=== PATIENT | male | born 1940 | race Caucasian/White ===

== ENCOUNTER 2018-11-23 04:55 | Emergency (ER) | payer MEDICARE, MEDICAID ==
[2018-11-23] MEDS ORDERED: Lidocaine 2% JELLY* 6 ML JELLY TOPICAL ONE ×2 (05:09→05:11)
--- NOTE | 2018-11-23 05:10 | ED ---
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 The patient says his bleeding resolved upon arrival. The patient states he rarely ever gets nosebleeds. He denies being on anticoagulants. He denies being in any pain. - History of Current Complaint Chief Complaint: EDEpistaxis Hx Obtained From: Patient Onset/Duration: Lasting Hours - Allergies/Home Medications Allergies/Adverse Reactions: Allergies Allergy/AdvReac Type Severity Reaction Status Date / Time No Known Allergies Allergy Verified 02/23/13 15:46 PMH/Surg Hx/FS Hx/Imm Hx Cardiovascular History: Reports: Hx Congestive Heart Failure, Hx Hypertension, Hx Myocardial Infarction, Hx Pacemaker/ICD Infectious Disease History: No Infectious Disease History: Denies: Traveled Outside the [place] in Last 30 Days - Family History Known Family History: Positive: Cardiac Disease - Social History Alcohol Use: None Hx Substance Use: No Substance Use Type: Reports: None Hx Tobacco Use: Yes Smoking Status (MU): Former Smoker Review of Systems Negative: Fever Positive: Epistaxis All Other Systems Reviewed And Are Negative: Yes Physical Exam - Summary Physical Exam Summary: VITAL SIGNS: Reviewed. GENERAL: Patient is a well-developed and nourished MALE who is lying comfortable in the stretcher. Patient is not in any acute respiratory distress. HEAD AND FACE: No signs of trauma. No ecchymosis, hematomas or skull depressions. No sinus tenderness. Large clot in the left nare. EYES: PERRLA, EOMI x 2, No injected conjunctiva, no nystagmus. EARS: Hearing grossly intact. Ear canals and tympanic membranes are within normal limits. MOUTH: Oropharynx within normal limits. NECK: Supple, trachea is midline, no adenopathy, no JVD, no carotid bruit, no c- spine tenderness, neck with full ROM CHEST: Symmetric, no tenderness at palpation LUNGS: Clear to auscultation bilaterally. No wheezing or crackles. CVS: Regular rate and rhythm, S1 and S2 present, no murmurs or gallops appreciated. ABDOMEN: Soft, non-tender. No signs of distention. No rebound no guarding, and no masses palpated. Bowel sounds are normal. EXTREMITIES: FROM in all major joints, no edema, no cyanosis or clubbing. NEURO: Alert and oriented x 3. No acute neurological deficits. Speech is normal and follows commands. SKIN: Dry and warm Triage Information Reviewed: Yes Vital Signs On Initial Exam: Initial Vitals Temp Pulse Resp BP Pulse Ox 98.2 F 69 20 172/88 95 11/23/18 04:58 11/23/18 04:58 11/23/18 04:58 11/23/18 04:58 11/23/18 04:58 Vital Signs Reviewed: Yes Diagnostics - Vital Signs Vital Signs Temp Pulse Resp BP Pulse Ox 11/23/18 04:58 98.2 F 69 20 172/88 95 - Laboratory Lab Statement: Any lab studies that have been ordered have been reviewed, and results considered in the medical decision making process. 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 Physical exam revealed a large clot in his left nare. One rhino rocket was placed in the left nare. A plan for discharge was discussed with the patient and he was agreeable with this plan. - Diagnoses Provider Diagnoses: Epistaxis Discharge - Sign-Out/Discharge Documenting (check all that apply): Patient Departure - Discharge Patient Received Moderate/Deep Sedation with Procedure: No - Discharge Plan Condition: Stable Disposition: HOME Prescriptions: Amoxicillin/Clavulanate TAB* [Augmentin TAB 875*] 875 mg PO BID #10 tab Patient Education Materials: Nosebleed (ED) Referrals: [facility] [Provider Group] - 1 Day Additional Instructions: Follow up with ENT today for removal of rhino rocket. Return to ED with any new or worsening symptoms - Billing Disposition and Condition Condition: STABLE Disposition: Home - Attestation Statements Document Initiated by Scribe: Yes Documenting Scribe: Kaushal Don Provider For Whom Bryan is Documenting (Include Credential): Vera Burgess MD Scribe Attestation: Kaushal Willson scribed for Vera Burgess MD on 11/23/18 at 0648. Scribe Documentation Reviewed: Yes Provider Attestation: The documentation as recorded by the Kaushal galicia accurately reflects the service I personally performed and the decisions made by me, Vera Burgess MD Status of Scribe Document: Viewed
[2018-11-23] MEDS ORDERED: traMADol TAB* 50 MG PO ONE (05:13)
[2018-11-23] MEDS ORDERED: cloNIDine TAB* 0.1 MG PO ONE (05:13)
[2018-11-23] MEDS ORDERED: Amoxicillin/Clavulanate TAB* 875 MG PO ONE (06:04)
[2018-11-23 06:50] VITALS: BP 131/63
== END 2018-11-23 06:49 | disposition home or self-care (01) ==
LOC: ED 04:55
DX: R04.0 Epistaxis (principal); I25.2 Old myocardial infarction; Z87.891 Personal history of nicotine dependence; I11.0 Hypertensive heart disease with heart failure
CPT/HCPCS: 30901; 99282; A9270-GY

== ENCOUNTER 2023-01-20 22:36 | Inpatient (IN) ==
[2023-01-21 12:49] LABS: ABS Lymphocytes 0.5 10^3/uL (1.0-4.8); ABS Monocytes 0.8 10^3/uL (0.0-1.1); ABS Neutrophils 8.1 10^3/uL (1.5-7.6); ABS Nucleated RBC 0.02 10^3/ul; Hematocrit 43.2 % (38-53); Hemoglobin 14.4 g/dL (13.2-16.3); Lymphocyte % 5.1 %; Mean Corpuscular Hemoglobin 32.1 pg (27-33); Mean Corpuscular Hgb Conc 33.3 g/dL (31-36); Mean Corpuscular Volume 96.4 fL (80-97); Mean Platelet Volume 9.8 fL (7.5-11.2); Nucleated Red Blood Cells % 0.2 /100 WBC (0.0-0.4); Platelet Count 115 10^3/uL (150-450); Red Blood Count 4.48 10^6/uL (4.06-5.63); Red Cell Distribution Width 16.6 % (12-17); White Blood Count 9.4 10^3/uL (3.6-10.2)
[2023-01-21 13:09] LABS: Albumin 3.2 g/dL (3.2-5.2); Albumin/Globulin Ratio 1.1 (1-3); C Reactive Protein 13.52 mg/L (<8.01); Calcium 8.7 mg/dL (8.6-10.3); Creatinine, Serum 1.97 mg/dL (0.67-1.17); Globulin 2.9 g/dL (2-4); Potassium 4.9 mmol/L (3.5-5.0); Total Bilirubin 3.4 mg/dL (0.2-1.0); Total Protein 6.1 g/dL (6.4-8.9); eGFR CKD-EPI 32.7 (>60)
[2023-01-21] MEDS ORDERED: NS 0.9% 1000 ml BAG 1,000 ML IV ONE (13:30)
[2023-01-21] MEDS ORDERED: cefTRIAXone 1 gm/50 mL D5W 1 GM/50 ML BAG IV ONE (13:30)
[2023-01-21 14:10] LABS: Urine Appearance Cloudy; Urine Bilirubin Negative (Negative); Urine Blood Negative (Negative); Urine Color Amber; Urine Glucose Negative (Negative); Urine Ketones Negative (Negative); Urine Nitrite Negative (Negative); Urine Protein 2+(100 mg/dL) (Negative); Urine Specific Gravity 1.017 (1.002-1.030); Urine Urobilinogen Positive (Negative)
[2023-01-21 15:17] LABS: Urine Bacteria 1+ (Absent); Urine Red Blood Cell 2+(6-10/hpf) (Absent); Urine Squamous Epithelial Cell Present (Absent); Urine White Blood Cell 3+(>20/hpf) (Absent)
[2023-01-21] MEDS ORDERED: Polyethylene Glycol 3350 17 GM PACKET PO PRN ×2 (15:47→16:36)
[2023-01-21] MEDS ORDERED: Magnesium Hydroxide LIQ 30 ML UDC PO PRN (15:47)
[2023-01-21] MEDS ORDERED: Senna TAB 8.6 mg TAB PO PRN ×2 (15:47→16:36)
[2023-01-21] MEDS ORDERED: Ondansetron 4 mg VIAL 2 MG/ML 2 ml VIAL IV PRN (16:36)
[2023-01-21] MEDS ORDERED: Dextrose 50% Syringe 50 ml 25 GM/50 ML SYRINGE IV PUSH PRN (16:39)
[2023-01-21] MEDS: Furosemide 40 mg/4 ml IV VIAL IV SLOW PU SCH (16:52)
[2023-01-21] MEDS ORDERED: Enoxaparin 40 MG/0.4 ML SYR SUBCUT SCH (21:00)
[2023-01-21] MEDS: Heparin 5000 UNITS/ML 1 mL VIAL SUBCUT SCH (21:59)
[2023-01-22] MEDS ORDERED: Furosemide 40 mg/4 ml IV VIAL IV SLOW PU ONE (01:08)
[2023-01-22 06:11] LABS: ABS Lymphocytes 0.4 10^3/uL (1.0-4.8); ABS Monocytes 0.5 10^3/uL (0.0-1.1); ABS Neutrophils 8.1 10^3/uL (1.5-7.6); ABS Nucleated RBC 0.02 10^3/ul; Hematocrit 43.4 % (38-53); Hemoglobin 14.6 g/dL (13.2-16.3); Lymphocyte % 4.8 %; Mean Corpuscular Hemoglobin 32.9 pg (27-33); Mean Corpuscular Hgb Conc 33.7 g/dL (31-36); Mean Corpuscular Volume 97.6 fL (80-97); Nucleated Red Blood Cells % 0.2 /100 WBC (0.0-0.4); Platelet Count 98 10^3/uL (150-450); Red Blood Count 4.45 10^6/uL (4.06-5.63); Red Cell Distribution Width 17.1 % (12-17); White Blood Count 9.1 10^3/uL (3.6-10.2)
[2023-01-22 06:13] LABS: INR 1.63 (0.88-1.18)
[2023-01-22 06:35] LABS: Albumin 3.1 g/dL (3.2-5.2); Calcium 8.5 mg/dL (8.6-10.3); Creatinine, Serum 1.87 mg/dL (0.67-1.17); Globulin 3.1 g/dL (2-4); Magnesium 2.1 mg/dL (1.9-2.7); Potassium 3.9 mmol/L (3.5-5.0); Total Bilirubin 3.1 mg/dL (0.2-1.0); Total Protein 6.2 g/dL (6.4-8.9); eGFR CKD-EPI 34.8 (>60)
[2023-01-22] MEDS: Furosemide 40 mg/4 ml IV VIAL IV SLOW PU SCH ×2 (09:38→19:41)
[2023-01-22] MEDS: Aspirin EC 81 mg TAB.EC (enteric coated) PO SCH (09:38)
[2023-01-22] MEDS: Heparin 5000 UNITS/ML 1 mL VIAL SUBCUT SCH (09:43)
[2023-01-22 14:14] LABS: Folate > 20.00 ng/mL (5.90-24.80)
[2023-01-22 14:16] LABS: Vitamin B12 > 1450 pg/mL (180-914)
[2023-01-22 14:34] LABS: Hepatitis C Antibody Negative (Negative)
[2023-01-22 14:56] LABS: Hepatitis B Surface Antigen Nonreactive (Nonreactive)
[2023-01-22 15:01] LABS: Hepatitis A Ab IgM Negative (Negative); Hepatitis B Core IgM Nonreactive (Nonreactive)
[2023-01-22 16:43] LABS: High Sensitivity Troponin 1 Hr 54 pg/mL (<20)
[2023-01-22] MEDS: Enoxaparin 30 MG/0.3 ML SYR SUBCUT SCH (20:36)
[2023-01-23 06:21] LABS: ABS Lymphocytes 0.7 10^3/uL (1.0-4.8); ABS Monocytes 0.6 10^3/uL (0.0-1.1); ABS Neutrophils 6.5 10^3/uL (1.5-7.6); ABS Nucleated RBC 0.02 10^3/ul; Eosinophil % 0.4 %; Hematocrit 39.7 % (38-53); Hemoglobin 13.3 g/dL (13.2-16.3); Lymphocyte % 8.6 %; Mean Corpuscular Hemoglobin 32.7 pg (27-33); Mean Corpuscular Hgb Conc 33.5 g/dL (31-36); Mean Corpuscular Volume 97.6 fL (80-97); Mean Platelet Volume 10.1 fL (7.5-11.2); Nucleated Red Blood Cells % 0.2 /100 WBC (0.0-0.4); Platelet Count 84 10^3/uL (150-450); Red Blood Count 4.07 10^6/uL (4.06-5.63); Red Cell Distribution Width 16.8 % (12-17); White Blood Count 7.8 10^3/uL (3.6-10.2)
[2023-01-23 06:32] LABS: Albumin 2.7 g/dL (3.2-5.2); Calcium 7.9 mg/dL (8.6-10.3); Creatinine, Serum 2.06 mg/dL (0.67-1.17); Globulin 2.8 g/dL (2-4); Potassium 4.2 mmol/L (3.5-5.0); Total Bilirubin 2.9 mg/dL (0.2-1.0); Total Protein 5.5 g/dL (6.4-8.9)
[2023-01-23 09:07] LABS: Direct Bilirubin 1.7 mg/dL (0.03-0.18); Indirect Bilirubin 1.2 mg/dL (0.3-1.0)
[2023-01-23 10:14] LABS: HDL Cholesterol 30.8 mg/dL
[2023-01-23] MEDS: Aspirin EC 81 mg TAB.EC (enteric coated) PO SCH (10:15)
[2023-01-23 10:45] LABS: TSH Ultra Thyroid Stim Horm 0.84 mcIU/mL (0.34-5.60)
[2023-01-23 10:47] LABS: Free T4 1.12 ng/dL (0.61-1.12)
[2023-01-23 10:48] LABS: Free T3 2.2 pg/mL (2.5-3.9)
[2023-01-23 10:53] LABS: Ferritin 444.3 ng/mL (24-336)
[2023-01-23] MEDS: Furosemide 40 mg/4 ml IV VIAL IV SLOW PU SCH ×2 (11:21→20:12)
[2023-01-23 15:43] LABS: C Reactive Protein 43.49 mg/L (<8.01)
[2023-01-23] MEDS: Enoxaparin 30 MG/0.3 ML SYR SUBCUT SCH (21:36)
[2023-01-24 07:25] LABS: ABS Eosinophils 0.1 10^3/uL (0.0-0.5); ABS Lymphocytes 0.9 10^3/uL (1.0-4.8); ABS Monocytes 0.6 10^3/uL (0.0-1.1); ABS Neutrophils 4.9 10^3/uL (1.5-7.6); ABS Nucleated RBC 0.02 10^3/ul; Eosinophil % 0.9 %; Hematocrit 39.9 % (38-53); Hemoglobin 13.3 g/dL (13.2-16.3); Lymphocyte % 13.6 %; Mean Corpuscular Hemoglobin 32.5 pg (27-33); Mean Corpuscular Hgb Conc 33.4 g/dL (31-36); Mean Corpuscular Volume 97.3 fL (80-97); Mean Platelet Volume 10.6 fL (7.5-11.2); Nucleated Red Blood Cells % 0.3 /100 WBC (0.0-0.4); Platelet Count 81 10^3/uL (150-450); Red Cell Distribution Width 17.1 % (12-17); White Blood Count 6.5 10^3/uL (3.6-10.2)
[2023-01-24 07:39] LABS: Calcium 7.8 mg/dL (8.6-10.3); Creatinine, Serum 1.83 mg/dL (0.67-1.17); Magnesium 2.2 mg/dL (1.9-2.7); Potassium 4.1 mmol/L (3.5-5.0); eGFR CKD-EPI 35.7 (>60)
[2023-01-24] MEDS: Aspirin EC 81 mg TAB.EC (enteric coated) PO SCH (09:24)
[2023-01-24] MEDS: Enoxaparin 30 MG/0.3 ML SYR SUBCUT SCH (20:16)
[2023-01-25 07:12] LABS: ABS Lymphocytes 0.6 10^3/uL (1.0-4.8); ABS Monocytes 0.4 10^3/uL (0.0-1.1); ABS Neutrophils 4.7 10^3/uL (1.5-7.6); Eosinophil % 0.4 %; Hematocrit 40.3 % (38-53); Hemoglobin 13.5 g/dL (13.2-16.3); Lymphocyte % 9.7 %; Mean Corpuscular Hgb Conc 33.6 g/dL (31-36); Mean Corpuscular Volume 98.3 fL (80-97); Mean Platelet Volume 9.7 fL (7.5-11.2); Nucleated Red Blood Cells % 0.1 /100 WBC (0.0-0.4); Platelet Count 57 10^3/uL (150-450); Red Cell Distribution Width 17.4 % (12-17); White Blood Count 5.7 10^3/uL (3.6-10.2)
[2023-01-25 07:23] LABS: Calcium 8.1 mg/dL (8.6-10.3); Creatinine, Serum 1.69 mg/dL (0.67-1.17); Magnesium 2.3 mg/dL (1.9-2.7); Potassium 4.3 mmol/L (3.5-5.0); eGFR CKD-EPI 39.3 (>60)
[2023-01-25] MEDS ORDERED: Furosemide 20 mg/2 ml IV VIAL IV ONE (09:26)
[2023-01-25] MEDS: Aspirin EC 81 mg TAB.EC (enteric coated) PO SCH (09:36)
[2023-01-25] MEDS: Enoxaparin 30 MG/0.3 ML SYR SUBCUT SCH (21:37)
[2023-01-26 07:01] LABS: ABS Lymphocytes 0.6 10^3/uL (1.0-4.8); ABS Monocytes 0.4 10^3/uL (0.0-1.1); ABS Neutrophils 5.7 10^3/uL (1.5-7.6); Eosinophil % 0.1 %; Hematocrit 41.8 % (38-53); Hemoglobin 13.9 g/dL (13.2-16.3); Lymphocyte % 8.6 %; Mean Corpuscular Hemoglobin 32.7 pg (27-33); Mean Corpuscular Hgb Conc 33.2 g/dL (31-36); Mean Corpuscular Volume 98.5 fL (80-97); Mean Platelet Volume 11.4 fL (7.5-11.2); Nucleated Red Blood Cells % 0.1 /100 WBC (0.0-0.4); Platelet Count 43 10^3/uL (150-450); Red Blood Count 4.24 10^6/uL (4.06-5.63); Red Cell Distribution Width 17.5 % (12-17); White Blood Count 6.6 10^3/uL (3.6-10.2)
[2023-01-26 07:16] LABS: Albumin 2.8 g/dL (3.2-5.2); Calcium 7.8 mg/dL (8.6-10.3); Creatinine, Serum 1.6 mg/dL (0.67-1.17); Globulin 2.9 g/dL (2-4); Magnesium 2.2 mg/dL (1.9-2.7); Potassium 4.4 mmol/L (3.5-5.0); Total Bilirubin 1.8 mg/dL (0.2-1.0); Total Protein 5.7 g/dL (6.4-8.9)
[2023-01-26] MEDS: Aspirin EC 81 mg TAB.EC (enteric coated) PO SCH (11:09)
[2023-01-26] MEDS ORDERED: Furosemide 20 mg/2 ml IV VIAL IV SLOW PU ONE (14:50)
[2023-01-26] MEDS ORDERED: Dextrose 50% Syringe 50 ml 25 GM/50 ML SYRINGE IV PUSH PRN (17:26)
[2023-01-27] MEDS ORDERED: Furosemide 20 mg/2 ml IV VIAL IV SLOW PU SCH (09:00)
[2023-01-27] MEDS: Aspirin EC 81 mg TAB.EC (enteric coated) PO SCH (09:04)
[2023-01-27 09:40] LABS: ABS Lymphocytes 0.7 10^3/uL (1.0-4.8); ABS Monocytes 0.4 10^3/uL (0.0-1.1); ABS Nucleated RBC 0.02 10^3/ul; Eosinophil % 0.1 %; Hematocrit 40.3 % (38-53); Hemoglobin 13.7 g/dL (13.2-16.3); Lymphocyte % 9.6 %; Mean Corpuscular Hemoglobin 33.4 pg (27-33); Mean Corpuscular Volume 98.1 fL (80-97); Mean Platelet Volume 11.3 fL (7.5-11.2); Nucleated Red Blood Cells % 0.3 /100 WBC (0.0-0.4); Platelet Count 34 10^3/uL (150-450); Red Blood Count 4.11 10^6/uL (4.06-5.63); Red Cell Distribution Width 17.6 % (12-17); White Blood Count 7.1 10^3/uL (3.6-10.2)
[2023-01-27 09:44] LABS: Calcium 8.1 mg/dL (8.6-10.3); Creatinine, Serum 1.76 mg/dL (0.67-1.17); Potassium 4.8 mmol/L (3.5-5.0); eGFR CKD-EPI 37.4 (>60)
[2023-01-27] MEDS ORDERED: Furosemide 20 mg/2 ml IV VIAL IV ONE (15:41)
[2023-01-28] MEDS: Aspirin EC 81 mg TAB.EC (enteric coated) PO SCH (09:56)
[2023-01-29 05:46] LABS: ABS Lymphocytes 0.5 10^3/uL (1.0-4.8); ABS Monocytes 0.5 10^3/uL (0.0-1.1); ABS Neutrophils 6.6 10^3/uL (1.5-7.6); ABS Nucleated RBC 0.01 10^3/ul; Eosinophil % 0.5 %; Hematocrit 38.3 % (38-53); Lymphocyte % 6.5 %; Mean Corpuscular Hemoglobin 32.9 pg (27-33); Mean Corpuscular Volume 96.7 fL (80-97); Mean Platelet Volume 10.6 fL (7.5-11.2); Nucleated Red Blood Cells % 0.1 /100 WBC (0.0-0.4); Platelet Count 40 10^3/uL (150-450); Red Blood Count 3.96 10^6/uL (4.06-5.63); Red Cell Distribution Width 17.1 % (12-17); White Blood Count 7.6 10^3/uL (3.6-10.2)
[2023-01-29 06:01] LABS: Calcium 7.6 mg/dL (8.6-10.3); Creatinine, Serum 1.76 mg/dL (0.67-1.17); Magnesium 2.2 mg/dL (1.9-2.7); Potassium 4.4 mmol/L (3.5-5.0); eGFR CKD-EPI 37.4 (>60)
[2023-01-29] MEDS: Aspirin EC 81 mg TAB.EC (enteric coated) PO SCH (10:15)
[2023-01-30] MEDS: Aspirin EC 81 mg TAB.EC (enteric coated) PO SCH (09:50)
[2023-01-31 06:48] LABS: Calcium 7.4 mg/dL (8.6-10.3); Creatinine, Serum 1.49 mg/dL (0.67-1.17); Potassium 3.8 mmol/L (3.5-5.0); eGFR CKD-EPI 45.7 (>60)
[2023-01-31 06:58] LABS: ABS Lymphocytes 0.5 10^3/uL (1.0-4.8); ABS Monocytes 0.5 10^3/uL (0.0-1.1); ABS Neutrophils 5.3 10^3/uL (1.5-7.6); Eosinophil % 0.6 %; Hematocrit 38.3 % (38-53); Hemoglobin 12.8 g/dL (13.2-16.3); Lymphocyte % 8.4 %; Mean Corpuscular Hemoglobin 33.1 pg (27-33); Mean Corpuscular Hgb Conc 33.4 g/dL (31-36); Mean Corpuscular Volume 98.9 fL (80-97); Mean Platelet Volume 9.5 fL (7.5-11.2); Nucleated Red Blood Cells % 0.1 /100 WBC (0.0-0.4); Platelet Count 49 10^3/uL (150-450); Red Blood Count 3.87 10^6/uL (4.06-5.63); Red Cell Distribution Width 17.7 % (12-17); White Blood Count 6.3 10^3/uL (3.6-10.2)
[2023-01-31] MEDS: Aspirin EC 81 mg TAB.EC (enteric coated) PO SCH (09:25)
[2023-01-31] MEDS ORDERED: Magnesium Hydroxide LIQ 30 ML UDC PO PRN (09:42)
[2023-01-31] MEDS ORDERED: Potassium Chloride LIQUID 20 MEQ/15 ML LIQUID PO ONE (09:43)
[2023-01-31] MEDS: Polyethylene Glycol 3350 17 GM PACKET PO SCH (12:03)
[2023-01-31] MEDS: Senna TAB 8.6 mg TAB PO SCH (21:32)
[2023-02-01 06:52] LABS: ABS Lymphocytes 0.7 10^3/uL (1.0-4.8); ABS Monocytes 0.5 10^3/uL (0.0-1.1); ABS Neutrophils 6.1 10^3/uL (1.5-7.6); Eosinophil % 0.4 %; Hematocrit 40.9 % (38-53); Hemoglobin 13.5 g/dL (13.2-16.3); Lymphocyte % 9.8 %; Mean Corpuscular Hemoglobin 32.7 pg (27-33); Mean Corpuscular Hgb Conc 33.1 g/dL (31-36); Mean Corpuscular Volume 98.7 fL (80-97); Nucleated Red Blood Cells % 0.1 /100 WBC (0.0-0.4); Platelet Count 62 10^3/uL (150-450); Red Blood Count 4.15 10^6/uL (4.06-5.63); Red Cell Distribution Width 17.6 % (12-17); White Blood Count 7.4 10^3/uL (3.6-10.2)
[2023-02-01 06:58] LABS: Calcium 7.7 mg/dL (8.6-10.3); Creatinine, Serum 1.4 mg/dL (0.67-1.17); Potassium 4.5 mmol/L (3.5-5.0); eGFR CKD-EPI 49.3 (>60)
[2023-02-01] MEDS: Polyethylene Glycol 3350 17 GM PACKET PO SCH (08:07)
[2023-02-01] MEDS: Aspirin EC 81 mg TAB.EC (enteric coated) PO SCH (08:10)
[2023-02-01] MEDS: Senna TAB 8.6 mg TAB PO SCH (23:05)
[2023-02-02 06:52] LABS: ABS Lymphocytes 0.7 10^3/uL (1.0-4.8); ABS Monocytes 0.5 10^3/uL (0.0-1.1); ABS Neutrophils 4.6 10^3/uL (1.5-7.6); Eosinophil % 0.8 %; Hemoglobin 12.4 g/dL (13.2-16.3); Lymphocyte % 12.3 %; Mean Corpuscular Hemoglobin 32.8 pg (27-33); Mean Corpuscular Hgb Conc 33.5 g/dL (31-36); Mean Corpuscular Volume 97.8 fL (80-97); Mean Platelet Volume 9.7 fL (7.5-11.2); Nucleated Red Blood Cells % 0.1 /100 WBC (0.0-0.4); Platelet Count 69 10^3/uL (150-450); Red Blood Count 3.78 10^6/uL (4.06-5.63); Red Cell Distribution Width 17.3 % (12-17); White Blood Count 5.8 10^3/uL (3.6-10.2)
[2023-02-02 06:58] LABS: Albumin 2.3 g/dL (3.2-5.2); Calcium 7.4 mg/dL (8.6-10.3); Creatinine, Serum 1.31 mg/dL (0.67-1.17); Globulin 2.4 g/dL (2-4); Magnesium 2.1 mg/dL (1.9-2.7); Potassium 4.2 mmol/L (3.5-5.0); Total Bilirubin 1.4 mg/dL (0.2-1.0); Total Protein 4.7 g/dL (6.4-8.9); eGFR CKD-EPI 53.3 (>60)
[2023-02-02] MEDS: Aspirin EC 81 mg TAB.EC (enteric coated) PO SCH (08:48)
[2023-02-02] MEDS: Empagliflozin 25 MG TAB PO SCH (09:37)
[2023-02-02] MEDS ORDERED: Enoxaparin 30 MG/0.3 ML SYR SUBCUT SCH (14:00)
[2023-02-02 17:05] LABS: Rapid COVID-19 Molecular Undetected (Undetected)
[2023-02-02] MEDS: Senna TAB 8.6 mg TAB PO SCH (22:06)
[2023-02-03 06:42] LABS: INR 1.01 (0.88-1.18)
[2023-02-03] MEDS: Empagliflozin 25 MG TAB PO SCH (09:04)
[2023-02-03] MEDS: Aspirin EC 81 mg TAB.EC (enteric coated) PO SCH (09:05)
[2023-02-03 09:44] LABS: Calcium 7.9 mg/dL (8.6-10.3); Potassium 4.6 mmol/L (3.5-5.0)
[2023-02-03 09:50] LABS: Creatinine, Serum 1.59 mg/dL (0.67-1.17); eGFR CKD-EPI 42.3 (>60)
[2023-02-03] MEDS: Senna TAB 8.6 mg TAB PO SCH (20:41)
[2023-02-04 06:29] LABS: Hematocrit 39.2 % (38-53); Hemoglobin 13.1 g/dL (13.2-16.3); Mean Corpuscular Hemoglobin 32.6 pg (27-33); Mean Corpuscular Hgb Conc 33.5 g/dL (31-36); Mean Corpuscular Volume 97.3 fL (80-97); Mean Platelet Volume 10.4 fL (7.5-11.2); Platelet Count 86 10^3/uL (150-450); Red Blood Count 4.03 10^6/uL (4.06-5.63); White Blood Count 6.7 10^3/uL (3.6-10.2)
[2023-02-04 06:39] LABS: Calcium 7.8 mg/dL (8.6-10.3); Creatinine, Serum 1.62 mg/dL (0.67-1.17); Potassium 4.7 mmol/L (3.5-5.0); eGFR CKD-EPI 41.3 (>60)
[2023-02-04] MEDS: Aspirin EC 81 mg TAB.EC (enteric coated) PO SCH (10:41)
[2023-02-04] MEDS: Empagliflozin 25 MG TAB PO SCH (10:42)
[2023-02-04 12:07] VITALS: BP 102/87
== END 2023-02-04 13:25 | DRG 264 ==
LOC: EDHOLD 22:36 → ED 22:36 → SUATTDRO 01-21 15:47 → MEDTELE 01-21 18:12 → SUATTDRO 01-23 10:30
PROVIDERS: ADMIT Internal Medicine; ATTEND Internal Medicine

== ENCOUNTER 2023-02-20 16:34 | Inpatient (IN) ==
[2023-02-20 17:57] LABS: ABS Lymphocytes 0.8 10^3/uL (1.0-4.8); ABS Monocytes 0.4 10^3/uL (0.0-1.1); ABS Neutrophils 4.2 10^3/uL (1.5-7.6); ABS Nucleated RBC 0.01 10^3/ul; Eosinophil % 0.4 %; Hematocrit 36.2 % (38-53); Hemoglobin 11.9 g/dL (13.2-16.3); Lymphocyte % 15.1 %; Mean Corpuscular Hemoglobin 31.8 pg (27-33); Mean Corpuscular Volume 96.3 fL (80-97); Mean Platelet Volume 8.7 fL (7.5-11.2); Nucleated Red Blood Cells % 0.1 /100 WBC (0.0-0.4); Platelet Count 148 10^3/uL (150-450); Red Blood Count 3.76 10^6/uL (4.06-5.63); Red Cell Distribution Width 15.7 % (12-17); White Blood Count 5.5 10^3/uL (3.6-10.2)
[2023-02-20 18:12] LABS: Albumin 2.7 g/dL (3.2-5.2); Albumin/Globulin Ratio 0.9 (1-3); C Reactive Protein 129.62 mg/L (<8.01); Calcium 8.1 mg/dL (8.6-10.3); Creatinine, Serum 1.18 mg/dL (0.67-1.17); Globulin 3.1 g/dL (2-4); Total Bilirubin 0.9 mg/dL (0.2-1.0); Total Protein 5.8 g/dL (6.4-8.9); eGFR CKD-EPI 60.5 (>60)
[2023-02-20] MEDS ORDERED: Furosemide 40 mg/4 ml IV VIAL IV ONE (18:50)
[2023-02-20 19:14] LABS: Activated Partial Thrombo Time 28.8 seconds (26.0-38.0); INR 1.06 (0.83-1.13)
[2023-02-20 19:26] LABS: High Sensitivity Troponin 1 Hr 22 pg/mL (<20)
[2023-02-20 19:52] LABS: Urine Appearance Turbid; Urine Bilirubin Negative (Negative); Urine Blood 3+ (Negative); Urine Color Yellow; Urine Glucose 3+(>=500 mg/dL) (Negative); Urine Ketones Negative (Negative); Urine Nitrite Negative (Negative); Urine Protein 2+(100 mg/dL) (Negative); Urine Specific Gravity 1.022 (1.002-1.030); Urine Urobilinogen Negative (Negative)
[2023-02-20 19:58] LABS: Urine Bacteria Absent (Absent); Urine Red Blood Cell 3+(>10/hpf) (Absent); Urine White Blood Cell 3+(>20/hpf) (Absent); Urine Yeast Present (Absent)
[2023-02-20 22:35] LABS: HDL Cholesterol 40.3 mg/dL
[2023-02-20] MEDS ORDERED: Piperacillin/Tazobac 3.375 BAG 3.375 GM/100 ML BAG IV ONE (23:16)
[2023-02-20] MEDS: Enoxaparin 40 MG/0.4 ML SYR SUBCUT SCH (23:40)
[2023-02-20] MEDS: Senna TAB 8.6 mg TAB PO SCH (23:40)
[2023-02-20] MEDS ORDERED: Zosyn per Pharmacy NOTE FOLLOW UP SCH (23:45)
[2023-02-21] MEDS ORDERED: ZOSYN 3.375 GM Q8H per EXTENDED INFUSION IV SCH (04:00)
[2023-02-21 05:52] LABS: ABS Lymphocytes 0.7 10^3/uL (1.0-4.8); ABS Monocytes 0.4 10^3/uL (0.0-1.1); ABS Neutrophils 3.8 10^3/uL (1.5-7.6); Eosinophil % 0.7 %; Hematocrit 32.2 % (38-53); Lymphocyte % 13.3 %; Mean Corpuscular Hemoglobin 32.5 pg (27-33); Mean Corpuscular Hgb Conc 34.2 g/dL (31-36); Mean Platelet Volume 8.3 fL (7.5-11.2); Nucleated Red Blood Cells % 0.1 /100 WBC (0.0-0.4); Platelet Count 136 10^3/uL (150-450); Red Blood Count 3.39 10^6/uL (4.06-5.63); Red Cell Distribution Width 15.5 % (12-17)
[2023-02-21 05:58] LABS: INR 1.14 (0.83-1.13)
[2023-02-21] MEDS: Bumetanide IV 0.25 MG/ML 4 ml VIAL (1 mg) IV SLOW PU SCH ×2 (05:59→13:01)
[2023-02-21 06:08] LABS: Albumin 2.2 g/dL (3.2-5.2); Albumin/Globulin Ratio 0.8 (1-3); C Reactive Protein 109.72 mg/L (<8.01); Calcium 7.4 mg/dL (8.6-10.3); Creatinine, Serum 1.07 mg/dL (0.67-1.17); Globulin 2.7 g/dL (2-4); Magnesium 1.8 mg/dL (1.9-2.7); Potassium 3.2 mmol/L (3.5-5.0); Total Bilirubin 0.9 mg/dL (0.2-1.0); Total Protein 4.9 g/dL (6.4-8.9)
[2023-02-21] MEDS ORDERED: Potassium EFFERVES 25 meq TAB PO ONE (06:52)
[2023-02-21 07:26] LABS: Ferritin 211.1 ng/mL (24-336)
[2023-02-21] MEDS: Polyethylene Glycol 3350 17 GM PACKET PO SCH (09:15)
[2023-02-21] MEDS: Aspirin EC 81 mg TAB.EC (enteric coated) PO SCH (09:17)
[2023-02-21] MEDS: Empagliflozin 25 MG TAB PO SCH (09:17)
[2023-02-21 16:47] LABS: Calcium 7.6 mg/dL (8.6-10.3); Creatinine, Serum 1.18 mg/dL (0.67-1.17); Potassium 3.6 mmol/L (3.5-5.0); eGFR CKD-EPI 60.5 (>60)
[2023-02-21] MEDS: Enoxaparin 40 MG/0.4 ML SYR SUBCUT SCH (21:27)
[2023-02-21] MEDS: Senna TAB 8.6 mg TAB PO SCH (21:27)
[2023-02-22] MEDS: Bumetanide IV 0.25 MG/ML 4 ml VIAL (1 mg) IV SLOW PU SCH ×2 (05:28→12:39)
[2023-02-22 06:31] LABS: ABS Lymphocytes 0.7 10^3/uL (1.0-4.8); ABS Monocytes 0.4 10^3/uL (0.0-1.1); ABS Neutrophils 4.5 10^3/uL (1.5-7.6); ABS Nucleated RBC 0.01 10^3/ul; Eosinophil % 0.3 %; Hematocrit 33.4 % (38-53); Hemoglobin 11.4 g/dL (13.2-16.3); Lymphocyte % 12.5 %; Mean Corpuscular Hemoglobin 32.2 pg (27-33); Mean Corpuscular Hgb Conc 34.1 g/dL (31-36); Mean Corpuscular Volume 94.5 fL (80-97); Nucleated Red Blood Cells % 0.1 /100 WBC (0.0-0.4); Platelet Count 152 10^3/uL (150-450); Red Blood Count 3.53 10^6/uL (4.06-5.63); Red Cell Distribution Width 15.2 % (12-17); White Blood Count 5.5 10^3/uL (3.6-10.2)
[2023-02-22 06:45] LABS: Calcium 7.4 mg/dL (8.6-10.3); Creatinine, Serum 1.13 mg/dL (0.67-1.17); Magnesium 1.8 mg/dL (1.9-2.7); Potassium 3.2 mmol/L (3.5-5.0); eGFR CKD-EPI 63.7 (>60)
[2023-02-22] MEDS ORDERED: Magnesium Sulfate 2 gm BAG 2 GM/50 ML BAG IVPB ONE (07:38)
[2023-02-22] MEDS: Potassium Chlor 20 meq TAB.ER PO SCH ×2 (08:28→12:39)
[2023-02-22] MEDS: Empagliflozin 25 MG TAB PO SCH (08:28)
[2023-02-22] MEDS: Aspirin EC 81 mg TAB.EC (enteric coated) PO SCH (08:28)
[2023-02-22] MEDS: Polyethylene Glycol 3350 17 GM PACKET PO SCH (08:28)
[2023-02-22 19:16] LABS: Calcium 8.1 mg/dL (8.6-10.3); Creatinine, Serum 1.25 mg/dL (0.67-1.17); Potassium 3.9 mmol/L (3.5-5.0); eGFR CKD-EPI 56.4 (>60)
[2023-02-22] MEDS: Senna TAB 8.6 mg TAB PO SCH (21:03)
[2023-02-22] MEDS: Enoxaparin 40 MG/0.4 ML SYR SUBCUT SCH (21:07)
[2023-02-23 05:58] LABS: Hematocrit 38.5 % (38-53); Hemoglobin 12.9 g/dL (13.2-16.3); Mean Corpuscular Hemoglobin 31.6 pg (27-33); Mean Corpuscular Hgb Conc 33.4 g/dL (31-36); Mean Corpuscular Volume 94.4 fL (80-97); Mean Platelet Volume 8.2 fL (7.5-11.2); Platelet Count 179 10^3/uL (150-450); Red Blood Count 4.08 10^6/uL (4.06-5.63); Red Cell Distribution Width 15.5 % (12-17)
[2023-02-23 06:13] LABS: Calcium 7.8 mg/dL (8.6-10.3); Creatinine, Serum 1.19 mg/dL (0.67-1.17); Magnesium 2.2 mg/dL (1.9-2.7); Phosphorus 3.5 mg/dL (2.5-5.0); Potassium 3.7 mmol/L (3.5-5.0); eGFR CKD-EPI 59.9 (>60)
[2023-02-23] MEDS ORDERED: Potassium Chlor 20 meq TAB.ER PO ONE (06:23)
[2023-02-23] MEDS: Polyethylene Glycol 3350 17 GM PACKET PO SCH (07:53)
[2023-02-23] MEDS: Empagliflozin 25 MG TAB PO SCH (07:54)
[2023-02-23] MEDS: Aspirin EC 81 mg TAB.EC (enteric coated) PO SCH (07:54)
[2023-02-23] MEDS ORDERED: Furosemide 40 mg/4 ml IV VIAL IV ONE (10:59)
[2023-02-23 12:55] LABS: Urine Color Yellow
[2023-02-23 12:59] LABS: Urine Appearance Turbid; Urine Bacteria Absent (Absent); Urine Bilirubin Negative (Negative); Urine Blood 2+ (Negative); Urine Glucose 3+(>=500 mg/dL) (Negative); Urine Ketones Negative (Negative); Urine Nitrite Negative (Negative); Urine Protein Negative (Negative); Urine Red Blood Cell 3+(>10/hpf) (Absent); Urine Urobilinogen Negative (Negative); Urine White Blood Cell 3+(>20/hpf) (Absent); Urine Yeast Present (Absent)
[2023-02-23] MEDS: Insulin GLARGINE 100 un/ml 10 ml VIAL SUBCUT SCH (13:05)
[2023-02-23] MEDS: Ferric Gluconate IV 250 MG in NS 0.9% 250 ml 200 ML IVPB SCH (16:38)
[2023-02-23] MEDS: Senna TAB 8.6 mg TAB PO SCH (22:39)
[2023-02-23] MEDS: Enoxaparin 40 MG/0.4 ML SYR SUBCUT SCH (22:41)
[2023-02-24 05:39] LABS: Hematocrit 33.6 % (38-53); Hemoglobin 11.5 g/dL (13.2-16.3); Mean Corpuscular Hemoglobin 32.3 pg (27-33); Mean Corpuscular Hgb Conc 34.3 g/dL (31-36); Mean Corpuscular Volume 94.3 fL (80-97); Platelet Count 171 10^3/uL (150-450); Red Blood Count 3.56 10^6/uL (4.06-5.63); Red Cell Distribution Width 15.3 % (12-17)
[2023-02-24 05:54] LABS: Calcium 7.9 mg/dL (8.6-10.3); Creatinine, Serum 1.09 mg/dL (0.67-1.17); Magnesium 2.2 mg/dL (1.9-2.7); Phosphorus 2.9 mg/dL (2.5-5.0); Potassium 4.1 mmol/L (3.5-5.0); eGFR CKD-EPI 66.5 (>60)
[2023-02-24] MEDS: Aspirin EC 81 mg TAB.EC (enteric coated) PO SCH (10:50)
[2023-02-24] MEDS: Empagliflozin 25 MG TAB PO SCH (10:50)
[2023-02-24] MEDS: Polyethylene Glycol 3350 17 GM PACKET PO SCH (10:51)
[2023-02-24] MEDS: Insulin GLARGINE 100 un/ml 10 ml VIAL SUBCUT SCH (10:51)
[2023-02-24] MEDS: Ferric Gluconate IV 250 MG in NS 0.9% 250 ml 200 ML IVPB SCH (10:51)
[2023-02-24] MEDS ORDERED: Furosemide 40 mg/4 ml IV VIAL IV ONE ×2 (11:28→12:19)
[2023-02-24] MEDS ORDERED: Insulin GLARGINE 100 un/ml 10 ml VIAL SUBCUT ONE (11:45)
[2023-02-24] MEDS: Dextrose 50% Syringe 50 ml 25 GM/50 ML SYRINGE IV PUSH PRN (16:57)
[2023-02-24] MEDS: Senna TAB 8.6 mg TAB PO SCH (21:16)
[2023-02-24] MEDS: Enoxaparin 40 MG/0.4 ML SYR SUBCUT SCH (21:16)
[2023-02-25 06:24] LABS: Calcium 7.4 mg/dL (8.6-10.3); Creatinine, Serum 1.09 mg/dL (0.67-1.17); eGFR CKD-EPI 66.5 (>60)
[2023-02-25] MEDS: Ferric Gluconate IV 250 MG in NS 0.9% 250 ml 200 ML IVPB SCH (08:32)
[2023-02-25] MEDS: Polyethylene Glycol 3350 17 GM PACKET PO SCH (08:36)
[2023-02-25] MEDS: Aspirin EC 81 mg TAB.EC (enteric coated) PO SCH (08:37)
[2023-02-25] MEDS: Empagliflozin 25 MG TAB PO SCH (08:37)
[2023-02-25] MEDS: Insulin GLARGINE 100 un/ml 10 ml VIAL SUBCUT SCH (08:38)
[2023-02-25] MEDS ORDERED: Furosemide 40 mg/4 ml IV VIAL IV ONE ×2 (10:28→15:52)
[2023-02-25] MEDS: Senna TAB 8.6 mg TAB PO SCH (20:56)
[2023-02-25] MEDS: Enoxaparin 40 MG/0.4 ML SYR SUBCUT SCH (20:57)
[2023-02-26 06:08] LABS: Calcium 7.4 mg/dL (8.6-10.3); Potassium 4.4 mmol/L (3.5-5.0)
[2023-02-26 06:14] LABS: Creatinine, Serum 1.03 mg/dL (0.67-1.17); eGFR CKD-EPI 71.2 (>60)
[2023-02-26] MEDS ORDERED: Piperacillin/Tazobac 3.375 BAG 3.375 GM/100 ML BAG IV ONE (09:44)
[2023-02-26] MEDS ORDERED: Zosyn per Pharmacy NOTE FOLLOW UP SCH (10:00)
[2023-02-26] MEDS: Insulin GLARGINE 100 un/ml 10 ml VIAL SUBCUT SCH (10:20)
[2023-02-26] MEDS: Empagliflozin 25 MG TAB PO SCH (10:21)
[2023-02-26] MEDS: Aspirin EC 81 mg TAB.EC (enteric coated) PO SCH (10:21)
[2023-02-26] MEDS: Polyethylene Glycol 3350 17 GM PACKET PO SCH (10:22)
[2023-02-26] MEDS: Ferric Gluconate IV 250 MG in NS 0.9% 250 ml 200 ML IVPB SCH (11:58)
[2023-02-26] MEDS: ZOSYN 3.375 GM Q8H per EXTENDED INFUSION IV SCH (17:31)
[2023-02-26 18:42] LABS: Calcium 7.9 mg/dL (8.6-10.3); Creatinine, Serum 1.12 mg/dL (0.67-1.17); Magnesium 2.1 mg/dL (1.9-2.7); Phosphorus 2.8 mg/dL (2.5-5.0); Potassium 4.5 mmol/L (3.5-5.0); eGFR CKD-EPI 64.4 (>60)
[2023-02-26] MEDS: Enoxaparin 40 MG/0.4 ML SYR SUBCUT SCH (21:58)
[2023-02-26] MEDS: Senna TAB 8.6 mg TAB PO SCH (22:02)
[2023-02-27] MEDS: ZOSYN 3.375 GM Q8H per EXTENDED INFUSION IV SCH ×2 (02:17→10:12)
[2023-02-27] MEDS ORDERED: Dextrose 50% Syringe 50 ml 25 GM/50 ML SYRINGE IV PUSH PRN ×2 (07:46→22:03)
[2023-02-27] MEDS ORDERED: Insulin GLARGINE 100 un/ml 10 ml VIAL SUBCUT SCH (08:00)
[2023-02-27 08:16] LABS: Hematocrit 30.5 % (38-53); Hemoglobin 10.6 g/dL (13.2-16.3); Mean Corpuscular Hemoglobin 32.5 pg (27-33); Mean Corpuscular Hgb Conc 34.8 g/dL (31-36); Mean Corpuscular Volume 93.4 fL (80-97); Mean Platelet Volume 7.8 fL (7.5-11.2); Platelet Count 155 10^3/uL (150-450); Red Blood Count 3.26 10^6/uL (4.06-5.63); Red Cell Distribution Width 15.2 % (12-17); White Blood Count 6.7 10^3/uL (3.6-10.2)
[2023-02-27] MEDS ORDERED: Vancomycin 1,000 MG in NS 0.9% 250 ml 250 ML IVPB ONE (08:25)
[2023-02-27 08:50] LABS: Calcium 7.6 mg/dL (8.6-10.3); Creatinine, Serum 1.1 mg/dL (0.67-1.17); Magnesium 2.1 mg/dL (1.9-2.7); Phosphorus 2.8 mg/dL (2.5-5.0); Potassium 3.9 mmol/L (3.5-5.0); eGFR CKD-EPI 65.8 (>60)
[2023-02-27] MEDS ORDERED: Vancomycin per Pharmacy 1 EA NOTE FOLLOW UP SCH (09:00)
[2023-02-27] MEDS ORDERED: methylPREDNISolone SOD SUCC 40 mg/ml 1 ml VIAL IV SCH (09:00)
[2023-02-27 09:07] LABS: C Reactive Protein 90.46 mg/L (<8.01)
[2023-02-27] MEDS: Empagliflozin 25 MG TAB PO SCH (09:30)
[2023-02-27] MEDS: Polyethylene Glycol 3350 17 GM PACKET PO SCH (09:30)
[2023-02-27] MEDS: Aspirin EC 81 mg TAB.EC (enteric coated) PO SCH (09:30)
[2023-02-27] MEDS: Ferric Gluconate IV 250 MG in NS 0.9% 250 ml 200 ML IVPB SCH (12:49)
[2023-02-27] MEDS ORDERED: Bumetanide IV 0.25 MG/ML 4 ml VIAL (1 mg) IV SLOW PU ONE ×2 (13:16→18:04)
[2023-02-27 19:40] LABS: Blood Urea Nitrogen 34 mg/dL (6-24); CO2 Carbon Dioxide 30 mmol/L (22-32); Calcium 7.3 mg/dL (8.6-10.3); Chloride 96 mmol/L (101-111); Creatinine, Serum 1.09 mg/dL (0.67-1.17); Glucose 206 mg/dL (70-100); Sodium 138 mmol/L (135-145); eGFR CKD-EPI 66.5 (>60)
[2023-02-27 19:54] LABS: Anion Gap 12 mmol/L (2-16)
[2023-02-27] MEDS: Enoxaparin 40 MG/0.4 ML SYR SUBCUT SCH (22:01)
[2023-02-27] MEDS: Senna TAB 8.6 mg TAB PO SCH (22:02)
[2023-02-28 05:04] LABS: Hematocrit 32.8 % (38-53); Hemoglobin 11.3 g/dL (13.2-16.3); Mean Corpuscular Hemoglobin 32.3 pg (27-33); Mean Corpuscular Hgb Conc 34.5 g/dL (31-36); Mean Corpuscular Volume 93.7 fL (80-97); Mean Platelet Volume 7.6 fL (7.5-11.2); Platelet Count 175 10^3/uL (150-450); Red Cell Distribution Width 14.9 % (12-17); White Blood Count 4.6 10^3/uL (3.6-10.2)
[2023-02-28 05:31] LABS: Calcium 8.1 mg/dL (8.6-10.3); Creatinine, Serum 1.16 mg/dL (0.67-1.17); Magnesium 2.2 mg/dL (1.9-2.7); Potassium 4.1 mmol/L (3.5-5.0); eGFR CKD-EPI 61.7 (>60)
[2023-02-28 05:41] LABS: ABS Basophils 0.1 10^3/uL (0.0-0.1); ABS Lymphocytes 0.8 10^3/uL (1.0-4.8); ABS Monocytes 0.3 10^3/uL (0.0-1.1); ABS Neutrophils 3.5 10^3/uL (1.5-7.6); ABS Nucleated RBC 0.01 10^3/ul; Lymphocyte % 16.5 %; Nucleated Red Blood Cells % 0.1 /100 WBC (0.0-0.4)
[2023-02-28] MEDS ORDERED: Bumetanide IV 0.25 MG/ML 4 ml VIAL (1 mg) IV SLOW PU ONE (07:23)
[2023-02-28] MEDS: Polyethylene Glycol 3350 17 GM PACKET PO SCH (08:49)
[2023-02-28] MEDS: Aspirin EC 81 mg TAB.EC (enteric coated) PO SCH (08:50)
[2023-02-28] MEDS ORDERED: Vancomycin 1000 MG in NS 0.9% 250 ML IVPB SCH (09:00)
[2023-02-28] MEDS: Senna TAB 8.6 mg TAB PO SCH (20:03)
[2023-02-28] MEDS: Enoxaparin 40 MG/0.4 ML SYR SUBCUT SCH (20:03)
[2023-03-01] MEDS: Morphine 2 MG/ML SYRINGE IV PRN ×2 (03:51→05:03)
[2023-03-01] MEDS ORDERED: Bumetanide IV 0.25 MG/ML 4 ml VIAL (1 mg) IV SLOW PU ONE ×3 (04:13→14:00)
[2023-03-01] MEDS ORDERED: Bumetanide IV 0.25 MG/ML 4 ml VIAL (1 mg) ONE ×2 (04:15)
[2023-03-01 05:14] LABS: ABS Basophils 0.1 10^3/uL (0.0-0.1); ABS Lymphocytes 0.8 10^3/uL (1.0-4.8); ABS Monocytes 0.6 10^3/uL (0.0-1.1); ABS Neutrophils 9.1 10^3/uL (1.5-7.6); ABS Nucleated RBC 0.02 10^3/ul; Eosinophil % 0.4 %; Hematocrit 34.7 % (38-53); Hemoglobin 11.8 g/dL (13.2-16.3); Lymphocyte % 7.5 %; Mean Corpuscular Hemoglobin 31.9 pg (27-33); Mean Corpuscular Hgb Conc 33.9 g/dL (31-36); Mean Corpuscular Volume 93.9 fL (80-97); Mean Platelet Volume 7.7 fL (7.5-11.2); Nucleated Red Blood Cells % 0.2 /100 WBC (0.0-0.4); Platelet Count 214 10^3/uL (150-450); White Blood Count 10.6 10^3/uL (3.6-10.2)
[2023-03-01 05:29] LABS: Calcium 8.3 mg/dL (8.6-10.3); Creatinine, Serum 1.12 mg/dL (0.67-1.17); Magnesium 2.3 mg/dL (1.9-2.7); Phosphorus 2.1 mg/dL (2.5-5.0); Potassium 3.8 mmol/L (3.5-5.0); eGFR CKD-EPI 64.4 (>60)
[2023-03-01] MEDS ORDERED: Furosemide 40 mg/4 ml IV VIAL IV ONE (05:40)
[2023-03-01] MEDS: Polyethylene Glycol 3350 17 GM PACKET PO SCH (08:14)
[2023-03-01] MEDS: Aspirin EC 81 mg TAB.EC (enteric coated) PO SCH (08:22)
[2023-03-01 15:32] LABS: Calcium 8.3 mg/dL (8.6-10.3); Creatinine, Serum 1.26 mg/dL (0.67-1.17); Potassium 3.4 mmol/L (3.5-5.0); eGFR CKD-EPI 55.9 (>60)
[2023-03-01] MEDS: Senna TAB 8.6 mg TAB PO SCH (20:31)
[2023-03-01] MEDS: Enoxaparin 40 MG/0.4 ML SYR SUBCUT SCH (20:31)
[2023-03-02 05:02] LABS: ABS Lymphocytes 0.7 10^3/uL (1.0-4.8); ABS Monocytes 0.3 10^3/uL (0.0-1.1); ABS Neutrophils 5.9 10^3/uL (1.5-7.6); Eosinophil % 0.5 %; Hematocrit 35.3 % (38-53); Hemoglobin 12.1 g/dL (13.2-16.3); Lymphocyte % 9.9 %; Mean Corpuscular Hemoglobin 32.5 pg (27-33); Mean Corpuscular Hgb Conc 34.3 g/dL (31-36); Mean Corpuscular Volume 94.8 fL (80-97); Mean Platelet Volume 7.8 fL (7.5-11.2); Nucleated Red Blood Cells % 0.1 /100 WBC (0.0-0.4); Platelet Count 178 10^3/uL (150-450); Red Blood Count 3.72 10^6/uL (4.06-5.63); Red Cell Distribution Width 15.1 % (12-17)
[2023-03-02 05:19] LABS: Calcium 8.2 mg/dL (8.6-10.3); Creatinine, Serum 1.2 mg/dL (0.67-1.17); Magnesium 2.2 mg/dL (1.9-2.7); Potassium 3.3 mmol/L (3.5-5.0); eGFR CKD-EPI 59.3 (>60)
[2023-03-02] MEDS ORDERED: KCL 20 MEQ/100 ML IVPREMIX 20 MEQ/100 ML BAG IV SCH (07:00)
[2023-03-02] MEDS ORDERED: Potassium Chloride LIQUID 20 MEQ/15 ML LIQUID PO ONE (08:01)
[2023-03-02] MEDS: Aspirin EC 81 mg TAB.EC (enteric coated) PO SCH (08:22)
[2023-03-02] MEDS: Polyethylene Glycol 3350 17 GM PACKET PO SCH (08:22)
[2023-03-02] MEDS ORDERED: Vancomycin Trough Check NOTE FOLLOW UP ONE (08:30)
[2023-03-02] MEDS ORDERED: Bumetanide IV 0.25 MG/ML 4 ml VIAL (1 mg) IV SLOW PU ONE (12:13)
[2023-03-02 14:00] LABS: Activated Partial Thrombo Time 29.2 seconds (26.0-38.0)
[2023-03-02] MEDS: Senna TAB 8.6 mg TAB PO SCH (21:40)
[2023-03-03 04:46] LABS: ABS Basophils 0.1 10^3/uL (0.0-0.1); ABS Eosinophils 0.1 10^3/uL (0.0-0.5); ABS Lymphocytes 0.9 10^3/uL (1.0-4.8); ABS Monocytes 0.3 10^3/uL (0.0-1.1); ABS Neutrophils 6.5 10^3/uL (1.5-7.6); ABS Nucleated RBC 0.01 10^3/ul; Eosinophil % 0.9 %; Hematocrit 33.1 % (38-53); Hemoglobin 11.5 g/dL (13.2-16.3); Lymphocyte % 11.9 %; Mean Corpuscular Hemoglobin 32.5 pg (27-33); Mean Corpuscular Hgb Conc 34.8 g/dL (31-36); Mean Corpuscular Volume 93.4 fL (80-97); Mean Platelet Volume 7.9 fL (7.5-11.2); Nucleated Red Blood Cells % 0.1 /100 WBC (0.0-0.4); Platelet Count 176 10^3/uL (150-450); Red Blood Count 3.54 10^6/uL (4.06-5.63); Red Cell Distribution Width 14.9 % (12-17); White Blood Count 7.9 10^3/uL (3.6-10.2)
[2023-03-03 05:01] LABS: Calcium 8.2 mg/dL (8.6-10.3); Creatinine, Serum 1.14 mg/dL (0.67-1.17); Potassium 3.4 mmol/L (3.5-5.0)
[2023-03-03] MEDS ORDERED: Potassium Chloride LIQUID 20 MEQ/15 ML LIQUID PO ONE (05:32)
[2023-03-03] MEDS ORDERED: Midazolam 10 mg/10 ml VIAL 1 mg/ml 10 ml VIAL (10 mg) IV SLOW PU ONE (09:00)
[2023-03-03] MEDS ORDERED: ceFAZolin 2 GM in NS PREMIX 2 GM/100 ML BAG IVPB ONE (09:00)
[2023-03-03] MEDS ORDERED: fentaNYL 100 mcg/2 ml 50 MCG/ML VIAL IV SLOW PU ONE (09:00)
[2023-03-03] MEDS ORDERED: ceFAZolin SYR FLUSH 1 GM/10 ML for pocket flush (cardiology) FLUSH ONE (09:00)
[2023-03-03] MEDS: Aspirin EC 81 mg TAB.EC (enteric coated) PO SCH (09:10)
[2023-03-03] MEDS ORDERED: Potassium Chlor 20 meq TAB.ER PO ONE (09:40)
[2023-03-03] MEDS ORDERED: Heparin 2 UNITS/ML 1000 mls 1,000 ML IV ONE (11:54)
[2023-03-03] MEDS ORDERED: Lidocaine 1% VIAL 10 MG/ML 30 ML VIAL ONE (11:56)
[2023-03-03 12:41] LABS: POC SO2 59 %
[2023-03-03 12:41] LABS: POC SO2 57 %
[2023-03-03] MEDS: Polyethylene Glycol 3350 17 GM PACKET PO SCH (13:59)
[2023-03-03] MEDS: Senna TAB 8.6 mg TAB PO SCH (20:13)
[2023-03-04 03:43] LABS: ABS Basophils 0.1 10^3/uL (0.0-0.1); ABS Lymphocytes 0.6 10^3/uL (1.0-4.8); ABS Monocytes 0.4 10^3/uL (0.0-1.1); ABS Nucleated RBC 0.01 10^3/ul; Eosinophil % 0.5 %; Hematocrit 33.7 % (38-53); Hemoglobin 11.6 g/dL (13.2-16.3); Lymphocyte % 6.5 %; Mean Corpuscular Hemoglobin 32.4 pg (27-33); Mean Corpuscular Hgb Conc 34.5 g/dL (31-36); Mean Platelet Volume 7.9 fL (7.5-11.2); Nucleated Red Blood Cells % 0.1 /100 WBC (0.0-0.4); Platelet Count 183 10^3/uL (150-450); Red Blood Count 3.58 10^6/uL (4.06-5.63); Red Cell Distribution Width 14.8 % (12-17); White Blood Count 9.1 10^3/uL (3.6-10.2)
[2023-03-04 03:57] LABS: Calcium 8.1 mg/dL (8.6-10.3); Creatinine, Serum 1.09 mg/dL (0.67-1.17); Magnesium 2.1 mg/dL (1.9-2.7); Potassium 3.9 mmol/L (3.5-5.0); eGFR CKD-EPI 66.5 (>60)
[2023-03-04] MEDS ORDERED: Potassium EFFERVES 25 meq TAB PO ONE (06:43)
[2023-03-04] MEDS: Aspirin EC 81 mg TAB.EC (enteric coated) PO SCH (09:24)
[2023-03-04] MEDS: Polyethylene Glycol 3350 17 GM PACKET PO SCH (09:25)
[2023-03-04] MEDS: methylPREDNISolone SOD SUCC 40 mg/ml 1 ml VIAL IV SCH ×2 (17:16→23:30)
[2023-03-04] MEDS ORDERED: Bumetanide IV 0.25 MG/ML 4 ml VIAL (1 mg) IV SLOW PU ONE (17:38)
[2023-03-04] MEDS: Heparin 5000 UNITS/ML 1 mL VIAL SUBCUT SCH (20:30)
[2023-03-04] MEDS: Senna TAB 8.6 mg TAB PO SCH (20:30)
[2023-03-04] MEDS ORDERED: Heparin 5000 UNITS/ML 1 mL VIAL SUBCUT SCH (22:00)
[2023-03-05 01:28] LABS: PCO2 Arterial 51 mmHg (35-45)
[2023-03-05 01:37] LABS: PO2 Arterial 42 mmHg (80-100)
[2023-03-05 02:38] LABS: Venous Bicarbonate HCO3 39.1 mmol/L (24-28)
[2023-03-05 04:24] LABS: ABS Lymphocytes 0.4 10^3/uL (1.0-4.8); ABS Monocytes 0.1 10^3/uL (0.0-1.1); ABS Neutrophils 6.9 10^3/uL (1.5-7.6); ABS Nucleated RBC 0.01 10^3/ul; Hematocrit 32.1 % (38-53); Hemoglobin 10.9 g/dL (13.2-16.3); Mean Corpuscular Hgb Conc 34.1 g/dL (31-36); Mean Corpuscular Volume 93.9 fL (80-97); Nucleated Red Blood Cells % 0.1 /100 WBC (0.0-0.4); Platelet Count 197 10^3/uL (150-450); Red Blood Count 3.42 10^6/uL (4.06-5.63); Red Cell Distribution Width 14.7 % (12-17); White Blood Count 7.4 10^3/uL (3.6-10.2)
[2023-03-05 04:48] LABS: Calcium 8.4 mg/dL (8.6-10.3); Creatinine, Serum 0.95 mg/dL (0.67-1.17); Magnesium 2.1 mg/dL (1.9-2.7); Potassium 3.7 mmol/L (3.5-5.0); eGFR CKD-EPI 78.4 (>60)
[2023-03-05] MEDS ORDERED: Potassium EFFERVES 25 meq TAB PO ONE (05:25)
[2023-03-05] MEDS: Heparin 5000 UNITS/ML 1 mL VIAL SUBCUT SCH ×3 (05:29→21:55)
[2023-03-05] MEDS: Aspirin EC 81 mg TAB.EC (enteric coated) PO SCH (08:41)
[2023-03-05] MEDS: Polyethylene Glycol 3350 17 GM PACKET PO SCH (08:42)
[2023-03-05] MEDS: Pantoprazole VIAL 40 MG VIAL IV SCH (11:19)
[2023-03-05] MEDS: methylPREDNISolone SOD SUCC 40 mg/ml 1 ml VIAL IV SCH ×2 (11:19→15:34)
[2023-03-05] MEDS ORDERED: Furosemide 40 mg/4 ml IV VIAL IV ONE (11:57)
[2023-03-05] MEDS: Senna TAB 8.6 mg TAB PO SCH (21:54)
[2023-03-06] MEDS: methylPREDNISolone SOD SUCC 40 mg/ml 1 ml VIAL IV SCH ×4 (00:34→23:48)
[2023-03-06 04:26] LABS: ABS Lymphocytes 0.4 10^3/uL (1.0-4.8); ABS Monocytes 0.2 10^3/uL (0.0-1.1); ABS Neutrophils 6.3 10^3/uL (1.5-7.6); Lymphocyte % 5.9 %; Mean Corpuscular Hemoglobin 32.1 pg (27-33); Mean Corpuscular Hgb Conc 34.5 g/dL (31-36); Mean Platelet Volume 8.1 fL (7.5-11.2); Platelet Count 189 10^3/uL (150-450); Red Blood Count 3.44 10^6/uL (4.06-5.63); Red Cell Distribution Width 14.8 % (12-17); White Blood Count 6.9 10^3/uL (3.6-10.2)
[2023-03-06 04:38] LABS: Magnesium 2.2 mg/dL (1.9-2.7); Potassium 3.5 mmol/L (3.5-5.0)
[2023-03-06 04:44] LABS: Creatinine, Serum 1.05 mg/dL (0.67-1.17); eGFR CKD-EPI 69.6 (>60)
[2023-03-06] MEDS ORDERED: Potassium EFFERVES 25 meq TAB PO ONE (04:48)
[2023-03-06] MEDS: Heparin 5000 UNITS/ML 1 mL VIAL SUBCUT SCH ×3 (06:03→21:24)
[2023-03-06] MEDS: Aspirin EC 81 mg TAB.EC (enteric coated) PO SCH (09:03)
[2023-03-06] MEDS: Pantoprazole VIAL 40 MG VIAL IV SCH (09:04)
[2023-03-06] MEDS: Polyethylene Glycol 3350 17 GM PACKET PO SCH (09:04)
[2023-03-06 14:35] LABS: Urine Appearance Clear; Urine Bilirubin Negative (Negative); Urine Blood 2+ (Negative); Urine Color Yellow; Urine Glucose 3+(>=500 mg/dL) (Negative); Urine Ketones Negative (Negative); Urine Nitrite Negative (Negative); Urine Protein Negative (Negative); Urine Specific Gravity 1.011 (1.002-1.030); Urine Urobilinogen Negative (Negative)
[2023-03-06 14:52] LABS: Urine Bacteria Absent (Absent); Urine Red Blood Cell 1+(3-5/hpf) (Absent); Urine White Blood Cell 1+(6-10/hpf) (Absent)
[2023-03-06 17:19] LABS: Glucose Confirmatory 416 mg/dL (70-100)
[2023-03-06] MEDS: Senna TAB 8.6 mg TAB PO SCH (21:27)
[2023-03-06] MEDS: Insulin GLARGINE 100 un/ml 10 ml VIAL SUBCUT SCH (22:43)
[2023-03-07 05:21] LABS: ABS Lymphocytes 0.4 10^3/uL (1.0-4.8); ABS Monocytes 0.2 10^3/uL (0.0-1.1); ABS Neutrophils 7.4 10^3/uL (1.5-7.6); Hematocrit 29.1 % (38-53); Hemoglobin 10.3 g/dL (13.2-16.3); Lymphocyte % 4.6 %; Mean Corpuscular Hemoglobin 32.9 pg (27-33); Mean Corpuscular Hgb Conc 35.3 g/dL (31-36); Mean Corpuscular Volume 93.1 fL (80-97); Mean Platelet Volume 8.1 fL (7.5-11.2); Platelet Count 185 10^3/uL (150-450); Red Blood Count 3.12 10^6/uL (4.06-5.63); Red Cell Distribution Width 14.9 % (12-17)
[2023-03-07] MEDS: Heparin 5000 UNITS/ML 1 mL VIAL SUBCUT SCH ×3 (05:27→20:51)
[2023-03-07 05:38] LABS: Calcium 7.9 mg/dL (8.6-10.3); Magnesium 2.2 mg/dL (1.9-2.7); Potassium 3.5 mmol/L (3.5-5.0)
[2023-03-07 05:44] LABS: Creatinine, Serum 0.9 mg/dL (0.67-1.17); eGFR CKD-EPI 83.7 (>60)
[2023-03-07] MEDS: methylPREDNISolone SOD SUCC 40 mg/ml 1 ml VIAL IV SCH ×2 (08:15→16:04)
[2023-03-07] MEDS: Aspirin EC 81 mg TAB.EC (enteric coated) PO SCH (08:16)
[2023-03-07] MEDS: Polyethylene Glycol 3350 17 GM PACKET PO SCH (08:17)
[2023-03-07] MEDS: Pantoprazole VIAL 40 MG VIAL IV SCH (08:17)
[2023-03-07] MEDS: Furosemide 40 mg/4 ml IV VIAL IV SCH (10:20)
[2023-03-07] MEDS: Senna TAB 8.6 mg TAB PO SCH (20:45)
[2023-03-07] MEDS: Insulin GLARGINE 100 un/ml 10 ml VIAL SUBCUT SCH (20:52)
[2023-03-07] MEDS ORDERED: Insulin GLARGINE 100 un/ml 10 ml VIAL SUBCUT SCH (21:00)
[2023-03-08] MEDS: methylPREDNISolone SOD SUCC 40 mg/ml 1 ml VIAL IV SCH ×4 (02:09→22:18)
[2023-03-08] MEDS: Heparin 5000 UNITS/ML 1 mL VIAL SUBCUT SCH ×3 (05:24→21:40)
[2023-03-08 07:10] LABS: ABS Lymphocytes 0.4 10^3/uL (1.0-4.8); ABS Monocytes 0.3 10^3/uL (0.0-1.1); Hematocrit 31.9 % (38-53); Lymphocyte % 5.4 %; Mean Corpuscular Hemoglobin 32.2 pg (27-33); Mean Corpuscular Hgb Conc 34.4 g/dL (31-36); Mean Corpuscular Volume 93.5 fL (80-97); Mean Platelet Volume 8.4 fL (7.5-11.2); Platelet Count 190 10^3/uL (150-450); Red Blood Count 3.41 10^6/uL (4.06-5.63); Red Cell Distribution Width 15.3 % (12-17); White Blood Count 7.7 10^3/uL (3.6-10.2)
[2023-03-08 07:29] LABS: Calcium 7.9 mg/dL (8.6-10.3); Creatinine, Serum 0.9 mg/dL (0.67-1.17); Potassium 3.5 mmol/L (3.5-5.0); eGFR CKD-EPI 83.7 (>60)
[2023-03-08] MEDS: Dextrose 50% Syringe 50 ml 25 GM/50 ML SYRINGE IV PUSH PRN (07:59)
[2023-03-08] MEDS: Furosemide 40 mg/4 ml IV VIAL IV SCH (09:02)
[2023-03-08] MEDS: Pantoprazole VIAL 40 MG VIAL IV SCH (09:02)
[2023-03-08] MEDS: Aspirin EC 81 mg TAB.EC (enteric coated) PO SCH (09:02)
[2023-03-08] MEDS: Polyethylene Glycol 3350 17 GM PACKET PO SCH (09:03)
[2023-03-08] MEDS ORDERED: Insulin GLARGINE 100 un/ml 10 ml VIAL SUBCUT SCH ×2 (21:00)
[2023-03-08] MEDS: Senna TAB 8.6 mg TAB PO SCH (21:36)
[2023-03-08] MEDS: Insulin GLARGINE 100 un/ml 10 ml VIAL SUBCUT SCH (21:41)
[2023-03-09 05:44] LABS: PCO2 Arterial 42 mmHg (35-45); PO2 Arterial 61 mmHg (80-100)
[2023-03-09 06:07] LABS: ABS Lymphocytes 0.4 10^3/uL (1.0-4.8); ABS Monocytes 0.2 10^3/uL (0.0-1.1); ABS Neutrophils 6.1 10^3/uL (1.5-7.6); Hematocrit 30.5 % (38-53); Hemoglobin 10.6 g/dL (13.2-16.3); Lymphocyte % 6.5 %; Mean Corpuscular Hemoglobin 32.1 pg (27-33); Mean Corpuscular Hgb Conc 34.8 g/dL (31-36); Mean Corpuscular Volume 92.3 fL (80-97); Mean Platelet Volume 8.3 fL (7.5-11.2); Nucleated Red Blood Cells % 0.1 /100 WBC (0.0-0.4); Platelet Count 188 10^3/uL (150-450); Red Cell Distribution Width 15.1 % (12-17); White Blood Count 6.8 10^3/uL (3.6-10.2)
[2023-03-09 06:31] LABS: Magnesium 2.1 mg/dL (1.9-2.7)
[2023-03-09 06:37] LABS: Phosphorus 1.5 mg/dL (2.5-5.0)
[2023-03-09] MEDS: Heparin 5000 UNITS/ML 1 mL VIAL SUBCUT SCH ×3 (06:49→21:24)
[2023-03-09 08:18] LABS: Calcium 7.7 mg/dL (8.6-10.3); Creatinine, Serum 0.82 mg/dL (0.67-1.17); Potassium 2.9 mmol/L (3.5-5.0); eGFR CKD-EPI 86.1 (>60)
[2023-03-09] MEDS: Polyethylene Glycol 3350 17 GM PACKET PO SCH (09:23)
[2023-03-09] MEDS: Pantoprazole VIAL 40 MG VIAL IV SCH (09:30)
[2023-03-09] MEDS: Aspirin EC 81 mg TAB.EC (enteric coated) PO SCH (09:31)
[2023-03-09] MEDS: methylPREDNISolone SOD SUCC 40 mg/ml 1 ml VIAL IV SCH ×3 (09:31→23:24)
[2023-03-09] MEDS: Potassium Chlor 20 meq TAB.ER PO SCH ×2 (12:21→15:31)
[2023-03-09] MEDS: KCL 20 MEQ/100 ML IVPREMIX 20 MEQ/100 ML BAG IV SCH ×2 (12:21→15:30)
[2023-03-09] MEDS ORDERED: Potassium Phosphate IV 15 MMOL in NS 0.9% 250 ml 250 ML IVPB ONE (17:00)
[2023-03-09] MEDS: Senna TAB 8.6 mg TAB PO SCH (21:18)
[2023-03-09] MEDS: Insulin GLARGINE 100 un/ml 10 ml VIAL SUBCUT SCH (21:22)
[2023-03-09] MEDS: Saline NASAL SPRAY 0.65% BTL BOTH NARES PRN (23:38)
[2023-03-10] MEDS: Saline NASAL SPRAY 0.65% BTL BOTH NARES PRN ×3 (01:41→22:13)
[2023-03-10] MEDS: Heparin 5000 UNITS/ML 1 mL VIAL SUBCUT SCH ×3 (05:31→22:22)
[2023-03-10 06:55] LABS: ABS Lymphocytes 0.4 10^3/uL (1.0-4.8); ABS Monocytes 0.3 10^3/uL (0.0-1.1); ABS Neutrophils 9.4 10^3/uL (1.5-7.6); Hemoglobin 11.4 g/dL (13.2-16.3); Lymphocyte % 4.3 %; Mean Corpuscular Hemoglobin 32.3 pg (27-33); Mean Corpuscular Hgb Conc 34.6 g/dL (31-36); Mean Corpuscular Volume 93.5 fL (80-97); Platelet Count 194 10^3/uL (150-450); Red Blood Count 3.53 10^6/uL (4.06-5.63); Red Cell Distribution Width 15.5 % (12-17); White Blood Count 10.1 10^3/uL (3.6-10.2)
[2023-03-10 07:16] LABS: Calcium 7.8 mg/dL (8.6-10.3); Creatinine, Serum 0.96 mg/dL (0.67-1.17); Magnesium 2.3 mg/dL (1.9-2.7); Phosphorus 3.1 mg/dL (2.5-5.0); eGFR CKD-EPI 77.5 (>60)
[2023-03-10] MEDS: methylPREDNISolone SOD SUCC 40 mg/ml 1 ml VIAL IV SCH ×2 (08:16→22:08)
[2023-03-10] MEDS: Pantoprazole VIAL 40 MG VIAL IV SCH (08:16)
[2023-03-10] MEDS: Aspirin EC 81 mg TAB.EC (enteric coated) PO SCH (08:17)
[2023-03-10] MEDS: Polyethylene Glycol 3350 17 GM PACKET PO SCH (08:17)
[2023-03-10] MEDS: Insulin GLARGINE 100 un/ml 10 ml VIAL SUBCUT SCH (22:10)
[2023-03-10] MEDS: Senna TAB 8.6 mg TAB PO SCH (22:12)
[2023-03-11] MEDS: Heparin 5000 UNITS/ML 1 mL VIAL SUBCUT SCH (05:07)
[2023-03-11] MEDS: Saline NASAL SPRAY 0.65% BTL BOTH NARES PRN (05:15)
[2023-03-11 06:35] LABS: ABS Lymphocytes 0.4 10^3/uL (1.0-4.8); ABS Monocytes 0.3 10^3/uL (0.0-1.1); ABS Neutrophils 8.7 10^3/uL (1.5-7.6); ABS Nucleated RBC 0.01 10^3/ul; Hematocrit 34.2 % (38-53); Hemoglobin 11.6 g/dL (13.2-16.3); Lymphocyte % 4.4 %; Mean Corpuscular Hemoglobin 32.4 pg (27-33); Mean Corpuscular Hgb Conc 34.1 g/dL (31-36); Mean Platelet Volume 9.3 fL (7.5-11.2); Nucleated Red Blood Cells % 0.1 /100 WBC (0.0-0.4); Platelet Count 136 10^3/uL (150-450); Red Blood Count 3.59 10^6/uL (4.06-5.63); Red Cell Distribution Width 15.6 % (12-17); White Blood Count 9.4 10^3/uL (3.6-10.2)
[2023-03-11 06:51] LABS: Calcium 8.1 mg/dL (8.6-10.3); Creatinine, Serum 0.93 mg/dL (0.67-1.17); Magnesium 2.4 mg/dL (1.9-2.7); Phosphorus 2.1 mg/dL (2.5-5.0); Potassium 4.5 mmol/L (3.5-5.0); eGFR CKD-EPI 80.5 (>60)
[2023-03-11] MEDS: methylPREDNISolone SOD SUCC 40 mg/ml 1 ml VIAL IV SCH ×2 (08:33→21:32)
[2023-03-11] MEDS: Aspirin EC 81 mg TAB.EC (enteric coated) PO SCH (08:34)
[2023-03-11] MEDS: Pantoprazole VIAL 40 MG VIAL IV SCH (08:36)
[2023-03-11] MEDS: Polyethylene Glycol 3350 17 GM PACKET PO SCH (08:37)
[2023-03-11] MEDS: Dextrose 50% Syringe 50 ml 25 GM/50 ML SYRINGE IV PUSH PRN (12:04)
[2023-03-11] MEDS: Senna TAB 8.6 mg TAB PO SCH (21:34)
[2023-03-11] MEDS: Insulin GLARGINE 100 un/ml 10 ml VIAL SUBCUT SCH (21:38)
[2023-03-12] MEDS: Polyethylene Glycol 3350 17 GM PACKET PO SCH (08:57)
[2023-03-12] MEDS: Aspirin EC 81 mg TAB.EC (enteric coated) PO SCH (08:57)
[2023-03-12] MEDS ORDERED: Albuterol/Ipratropium NEB.SOL (2.5/0.5 MG) 3 ML NEB.SOLN INH ONE (13:54)
[2023-03-12] MEDS: Insulin GLARGINE 100 un/ml 10 ml VIAL SUBCUT SCH (20:56)
[2023-03-12] MEDS: Senna TAB 8.6 mg TAB PO SCH (20:58)
[2023-03-13 06:45] LABS: ABS Lymphocytes 0.8 10^3/uL (1.0-4.8); ABS Monocytes 0.9 10^3/uL (0.0-1.1); ABS Neutrophils 11.7 10^3/uL (1.5-7.6); ABS Nucleated RBC 0.01 10^3/ul; Hematocrit 33.9 % (38-53); Hemoglobin 11.5 g/dL (13.2-16.3); Lymphocyte % 6.2 %; Mean Corpuscular Hemoglobin 31.7 pg (27-33); Mean Corpuscular Hgb Conc 33.8 g/dL (31-36); Mean Corpuscular Volume 93.8 fL (80-97); Mean Platelet Volume 10.4 fL (7.5-11.2); Platelet Count 173 10^3/uL (150-450); Red Blood Count 3.62 10^6/uL (4.06-5.63); White Blood Count 13.5 10^3/uL (3.6-10.2)
[2023-03-13 06:59] LABS: Creatinine, Serum 1.25 mg/dL (0.67-1.17); Potassium 4.7 mmol/L (3.5-5.0)
[2023-03-13 07:00] LABS: Calcium 8.2 mg/dL (8.6-10.3); Magnesium 2.6 mg/dL (1.9-2.7); Phosphorus 3.1 mg/dL (2.5-5.0); eGFR CKD-EPI 56.4 (>60)
[2023-03-13] MEDS: Dextrose 50% Syringe 50 ml 25 GM/50 ML SYRINGE IV PUSH PRN (08:21)
[2023-03-13] MEDS: Aspirin EC 81 mg TAB.EC (enteric coated) PO SCH (08:28)
[2023-03-13] MEDS: Polyethylene Glycol 3350 17 GM PACKET PO SCH (08:29)
[2023-03-13 14:27] LABS: Creatinine, Serum 1.26 mg/dL (0.67-1.17); Potassium 4.4 mmol/L (3.5-5.0); eGFR CKD-EPI 55.9 (>60)
[2023-03-13] MEDS: Insulin GLARGINE 100 un/ml 10 ml VIAL SUBCUT SCH (21:54)
[2023-03-13] MEDS: Senna TAB 8.6 mg TAB PO SCH (21:55)
[2023-03-14] MEDS: Dextrose 50% Syringe 50 ml 25 GM/50 ML SYRINGE IV PUSH PRN (07:54)
[2023-03-14] MEDS: Aspirin EC 81 mg TAB.EC (enteric coated) PO SCH (08:47)
[2023-03-14] MEDS: Polyethylene Glycol 3350 17 GM PACKET PO SCH (08:51)
[2023-03-14 09:17] LABS: ABS Lymphocytes 0.6 10^3/uL (1.0-4.8); ABS Monocytes 0.7 10^3/uL (0.0-1.1); ABS Neutrophils 10.9 10^3/uL (1.5-7.6); ABS Nucleated RBC 0.01 10^3/ul; Hemoglobin 11.3 g/dL (13.2-16.3); Lymphocyte % 5.2 %; Mean Corpuscular Hemoglobin 32.5 pg (27-33); Mean Corpuscular Hgb Conc 34.3 g/dL (31-36); Mean Corpuscular Volume 94.8 fL (80-97); Mean Platelet Volume 10.7 fL (7.5-11.2); Nucleated Red Blood Cells % 0.1 /100 WBC (0.0-0.4); Platelet Count 133 10^3/uL (150-450); Red Blood Count 3.48 10^6/uL (4.06-5.63); Red Cell Distribution Width 16.4 % (12-17); White Blood Count 12.3 10^3/uL (3.6-10.2)
[2023-03-14 09:54] LABS: Calcium 7.9 mg/dL (8.6-10.3); Creatinine, Serum 1.19 mg/dL (0.67-1.17); Magnesium 2.5 mg/dL (1.9-2.7); Potassium 4.2 mmol/L (3.5-5.0); eGFR CKD-EPI 59.9 (>60)
[2023-03-14] MEDS: Senna TAB 8.6 mg TAB PO SCH (20:40)
[2023-03-15] MEDS: Aspirin EC 81 mg TAB.EC (enteric coated) PO SCH (10:00)
[2023-03-15] MEDS: Polyethylene Glycol 3350 17 GM PACKET PO SCH (10:03)
[2023-03-15] MEDS ORDERED: Morphine ORAL CONCENTRATE 5 MG/0.25 ML ORAL.SYRIN SL ONE (11:17)
[2023-03-15 11:53] LABS: PCO2 Arterial 43 mmHg (35-45); PO2 Arterial 101 mmHg (80-100)
[2023-03-15] MEDS ORDERED: Metoprolol Tartrate 5 mg VIAL 5 ml VIAL (1 mg/ml) IV ONE (13:47)
[2023-03-15] MEDS ORDERED: Furosemide 40 mg/4 ml IV VIAL IV SLOW PU ONE (15:38)
[2023-03-15] MEDS: Senna TAB 8.6 mg TAB PO SCH (20:39)
[2023-03-16 00:52] LABS: ABS Lymphocytes 0.3 10^3/uL (1.0-4.8); ABS Monocytes 0.3 10^3/uL (0.0-1.1); ABS Neutrophils 6.7 10^3/uL (1.5-7.6); ABS Nucleated RBC 0.01 10^3/ul; Hematocrit 30.6 % (38-53); Hemoglobin 10.6 g/dL (13.2-16.3); Lymphocyte % 4.5 %; Mean Corpuscular Hemoglobin 32.8 pg (27-33); Mean Corpuscular Hgb Conc 34.6 g/dL (31-36); Mean Corpuscular Volume 94.8 fL (80-97); Mean Platelet Volume 10.6 fL (7.5-11.2); Nucleated Red Blood Cells % 0.2 /100 WBC (0.0-0.4); Platelet Count 120 10^3/uL (150-450); Red Blood Count 3.23 10^6/uL (4.06-5.63); Red Cell Distribution Width 16.5 % (12-17); White Blood Count 7.3 10^3/uL (3.6-10.2)
[2023-03-16 01:01] LABS: Activated Partial Thrombo Time 28.3 seconds (26.0-38.0); INR 1.83 (0.83-1.13)
[2023-03-16] MEDS ORDERED: Furosemide 40 mg/4 ml IV VIAL IV ONE (07:49)
[2023-03-16] MEDS: Aspirin EC 81 mg TAB.EC (enteric coated) PO SCH (08:19)
[2023-03-16] MEDS ORDERED: Metoprolol Tartrate 5 mg VIAL 5 ml VIAL (1 mg/ml) IV ONE (08:25)
[2023-03-16 09:21] LABS: Calcium 7.6 mg/dL (8.6-10.3); Creatinine, Serum 1.4 mg/dL (0.67-1.17); Magnesium 2.7 mg/dL (1.9-2.7); Potassium 4.6 mmol/L (3.5-5.0); eGFR CKD-EPI 49.3 (>60)
[2023-03-16] MEDS: Polyethylene Glycol 3350 17 GM PACKET PO SCH (10:45)
[2023-03-16] MEDS: Senna TAB 8.6 mg TAB PO SCH (22:33)
[2023-03-17 07:40] LABS: Calcium 8.1 mg/dL (8.6-10.3); Creatinine, Serum 1.73 mg/dL (0.67-1.17); Potassium 4.8 mmol/L (3.5-5.0); eGFR CKD-EPI 38.2 (>60)
[2023-03-17] MEDS: Polyethylene Glycol 3350 17 GM PACKET PO SCH (08:46)
[2023-03-17] MEDS: Aspirin EC 81 mg TAB.EC (enteric coated) PO SCH (08:46)
[2023-03-17] MEDS ORDERED: Furosemide 20 mg/2 ml IV VIAL IV SLOW PU ONE ×2 (20:56→22:52)
[2023-03-17 21:23] LABS: PCO2 Arterial 43 mmHg (35-45); PO2 Arterial 121 mmHg (80-100)
[2023-03-17] MEDS: Senna TAB 8.6 mg TAB PO SCH (23:35)
[2023-03-18] MEDS: Aspirin EC 81 mg TAB.EC (enteric coated) PO SCH (09:55)
[2023-03-18] MEDS: Polyethylene Glycol 3350 17 GM PACKET PO SCH (10:05)
[2023-03-18 10:46] LABS: ABS Lymphocytes 0.4 10^3/uL (1.0-4.8); ABS Monocytes 0.8 10^3/uL (0.0-1.1); ABS Neutrophils 11.4 10^3/uL (1.5-7.6); ABS Nucleated RBC 0.02 10^3/ul; Eosinophil % 0.1 %; Hematocrit 33.7 % (38-53); Lymphocyte % 2.8 %; Mean Corpuscular Hemoglobin 32.2 pg (27-33); Mean Corpuscular Hgb Conc 32.6 g/dL (31-36); Mean Corpuscular Volume 98.8 fL (80-97); Nucleated Red Blood Cells % 0.2 /100 WBC (0.0-0.4); Platelet Count 134 10^3/uL (150-450); Red Blood Count 3.41 10^6/uL (4.06-5.63); Red Cell Distribution Width 17.4 % (12-17); White Blood Count 12.6 10^3/uL (3.6-10.2)
[2023-03-18 11:10] LABS: Calcium 7.2 mg/dL (8.6-10.3); Creatinine, Serum 1.91 mg/dL (0.67-1.17); Potassium 4.9 mmol/L (3.5-5.0); eGFR CKD-EPI 33.9 (>60)
[2023-03-18] MEDS ORDERED: Lactated Ringers 1000 ml BAG 1,000 ML IV ONE (14:41)
[2023-03-18] MEDS: Senna TAB 8.6 mg TAB PO SCH (20:35)
[2023-03-19 07:01] LABS: Calcium 7.6 mg/dL (8.6-10.3); Creatinine, Serum 1.91 mg/dL (0.67-1.17); Potassium 4.8 mmol/L (3.5-5.0); eGFR CKD-EPI 33.9 (>60)
[2023-03-19 07:07] LABS: ABS Lymphocytes 0.2 10^3/uL (1.0-4.8); ABS Monocytes 0.5 10^3/uL (0.0-1.1); ABS Nucleated RBC 0.02 10^3/ul; Hematocrit 33.1 % (38-53); Hemoglobin 11.3 g/dL (13.2-16.3); Lymphocyte % 1.8 %; Mean Corpuscular Hemoglobin 32.5 pg (27-33); Mean Corpuscular Hgb Conc 34.2 g/dL (31-36); Mean Corpuscular Volume 94.9 fL (80-97); Mean Platelet Volume 11.7 fL (7.5-11.2); Nucleated Red Blood Cells % 0.2 /100 WBC (0.0-0.4); Platelet Count 93 10^3/uL (150-450); Red Blood Count 3.48 10^6/uL (4.06-5.63); Red Cell Distribution Width 16.9 % (12-17); White Blood Count 11.6 10^3/uL (3.6-10.2)
[2023-03-19] MEDS: Polyethylene Glycol 3350 17 GM PACKET PO SCH (09:07)
[2023-03-19] MEDS: Aspirin EC 81 mg TAB.EC (enteric coated) PO SCH (09:08)
[2023-03-19] MEDS ORDERED: Lactated Ringers 1000 ml BAG 500 ML IV ONE (10:00)
[2023-03-19] MEDS ORDERED: Morphine ORAL CONCENTRATE 5 MG/0.25 ML ORAL.SYRIN SL PRN ×2 (13:02→15:42)
[2023-03-19 13:59] VITALS: BP 95/69
[2023-03-19] MEDS: Morphine ORAL CONCENTRATE 5 MG/0.25 ML ORAL.SYRIN SL PRN (18:32)
[2023-03-20] MEDS: Morphine ORAL CONCENTRATE 5 MG/0.25 ML ORAL.SYRIN SL PRN ×3 (01:45→09:11)
[2023-03-20] MEDS ORDERED: Morphine ORAL CONCENTRATE 5 MG/0.25 ML ORAL.SYRIN SL PRN (10:25)
[2023-03-20] MEDS: Polyethylene Glycol 3350 17 GM PACKET PO SCH (11:56)
[2023-03-20 12:32] LABS: Rapid COVID-19 Molecular Undetected (Undetected)
== END 2023-03-20 13:50 | DRG 189 ==
LOC: ED 16:34 → SUATTDRO 20:31 → EDHOLD 20:31 → MED 21:35 → MEDTELE 02-25 18:36 → ICU 02-27 08:53 → MED 03-07 12:30
PROVIDERS: ADMIT Student in an Organized Health Care Education/Training Program; ATTEND Student in an Organized Health Care Education/Training Program